=== PATIENT | female | born 1930 | race Caucasian/White ===

== ENCOUNTER 2017-01-03 10:01 | Inpatient (IN) | payer MEDICARE, OTHER ==
[2017-01-03] VITALS: BP 105/42
[~2017-01-03] VITALS: Ht 157.5 cm; Wt 43.1 kg
[~2017-01-03 10:01] MED LIST: DILT30TA14 PO; PANT40TA2 PO; SUCR1ORA6 GT
--- NOTE | 2017-01-03 10:25 | NUR ---
iv accessed to [facility] 20. blood sample sent to lab
[2017-01-03] MEDS ORDERED: OLANZAPINE 5 MG TABLET ONE (10:26)
[2017-01-03] MEDS ORDERED: IV NS 0.9% 500 ML IV ONE (10:26)
[2017-01-03] MEDS ORDERED: IV SET PRIMARY PUMP SET 1 EA INFUS.SET MC ONE (10:26)
[2017-01-03 10:28] LABS: BASOPHILS % (AUTO) 0.4 % (0.0-2.0); EOSINOPHILS % (AUTO) 0.5 % (0.0-6.0); HEMATOCRIT 34 % (33-45); HEMOGLOBIN 11.7 g/dL (11.5-14.8); LYMPHOCYTES # (AUTO) 1.4 /CMM (0.8-4.8); LYMPHOCYTES % (AUTO) 27.4 % (20.0-44.0); MEAN CORPUSCULAR HEMOGLOBIN 29 PG (26.0-33.0); MEAN CORPUSCULAR HGB CONC 34 g/dl (31.0-36.0); MEAN CORPUSCULAR VOLUME 86 fL (82-100); MONOCYTES # (AUTO) 0.7 /CMM (0.1-1.30); MONOCYTES % (AUTO) 13.2 % (2.0-12.0); NEUTROPHILS # (AUTO) 3.1 /CMM (1.8-8.9); NEUTROPHILS % (AUTO) 58.5 % (43.0-81.0); PLATELET COUNT (AUTO) 219 /CMM (150-450); RDW COEFFICIENT OF VARIATION 13.4 (11.5-15.0); RED BLOOD CELL COUNT(AUTO) 4.02 MIL/uL (4.0-5.2); WHITE BLOOD COUNT (AUTO) 5.2 K/uL (4.3-11.0)
[2017-01-03] MEDS ORDERED: IV NS 0.9% 500 ML BAG IV ONE (10:30)
[2017-01-03] MEDS ORDERED: OLANZAPINE 5 MG TABLET PO ONE (10:30)
[2017-01-03] MEDS ORDERED: DILT60TA19 PO (10:32)
[2017-01-03] MEDS ORDERED: SUCR1ORA6 PO (10:32)
[2017-01-03] MEDS ORDERED: PANT40TA4 PO (10:32)
--- NOTE | 2017-01-03 10:34 | NUR ---
radilogy tech at bs for cxr
--- NOTE | 2017-01-03 10:36 | NUR ---
bib family due to chest pain x 1 hour,. Patient is awake, however confused. Appears in no acute distress, respiration even and unlabored. No sob, patient sating well on room air. Skin is warm to touch and non diaphoretic. Afebrile. Gowned pt and placed on tele monitor. vss
--- NOTE | 2017-01-03 10:46 | NUR ---
URINE SAMPLE SENT TO LAB
--- NOTE | 2017-01-03 10:48 | NUR ---
[phone]- Divya Rosario [phone]- Ashwini Dtr in law- call first
[2017-01-03 10:51] LABS: CARBON DIOXIDE 27 mmol/L (21-32); CHLORIDE 104 mmol/L (98-107); CREATININE 0.9 mg/dL (0.6-1.3); GLUCOSE 103 mg/dL (74-106); POTASSIUM 4.3 mmol/L (3.5-5.1); SODIUM SERUM 138 mmol/L (136-145); UREA NITROGEN, BLOOD 20 mg/dL (7-18)
[2017-01-03 10:56] LABS: ALANINE AMINOTRANSFERASE 11 U/L (12-78); ALBUMIN 3.5 g/dL (3.4-5.0); ALKALINE PHOSPHATASE 122 U/L (46-116); ASPARTATE AMINOTRANSFERASE 13 U/L (15-37); BILIRUBIN,DIRECT 0.1 mg/dL (0.0-0.2); BILIRUBIN,TOTAL 0.3 mg/dL (0.2-1.0); TOTAL PROTEIN, SERUM 7.6 g/dL (6.4-8.2)
[2017-01-03 11:14] LABS: TROPONIN I < 0.017 ng/mL (0.00-0.056)
[2017-01-03 11:40] LABS: INR 1.05 (0.87-1.13); PROTHROMBIN TIME 10.9 SECS (9.5-12.7)
--- NOTE | 2017-01-03 11:49 | NUR ---
DR NICHOLSON ON THE PHONE WITH DR HILL FOR ADMISSION
[2017-01-03] MEDS ORDERED: MORPHINE SULFATE INJ 2 MG/ML DISP.SYRIN IV PRN ×2 (12:00→12:15)
[2017-01-03] MEDS ORDERED: SIMVASTATIN 20 MG TABLET PO SCH ×2 (12:00→22:00)
[2017-01-03] MEDS ORDERED: METOPROLOL TARTRATE 25 MG TABLET PO SCH (12:00)
[2017-01-03] MEDS ORDERED: ONDANSETRON HCL/PF 4 MG/2 ML VIAL IVP PRN ×2 (12:00→12:15)
[2017-01-03] MEDS ORDERED: ASPIRIN 81 MG TAB.CHEW PO SCH (12:00)
[2017-01-03] MEDS ORDERED: NITROGLYCERIN 0.4 MG/TAB BOTTLE SL PRN ×2 (12:00→12:15)
[2017-01-03] MEDS ORDERED: SUCRALFATE 1 G/10 ML UDC PO SCH (12:00)
[2017-01-03] MEDS ORDERED: PANTOPRAZOLE 40 MG TABLET.DR PO SCH (12:00)
--- NOTE | 2017-01-03 12:04 | NUR ---
TELE1/RN REPORT - ER RECEIVED A REPORT FROM ER NURSE ROMÁN FOR PT TO BE ADMITTED FOR CHEST PAIN, UNDER THE CARE OF DR. HILL. AWAITING FOR PT'S ARRIVAL.
--- NOTE | 2017-01-03 12:04 | NUR ---
Report given to nurse Pillar for joao
--- NOTE | 2017-01-03 12:12 | NUR ---
Transported patient to tele 1. [facility]
[2017-01-03 12:30] VITALS: BP 136/66
--- NOTE | 2017-01-03 12:30 | NUR ---
TELE1/MANAGER LABOR DELIVERY TO - TELE1 UNIT PT ARRIVED VIA GURNEY FROM ER ACCOMPANIED BY NURSE ROMÁN. PT ADMITTED FOR CHEST PAIN UDER THE CARE OF DR. HILL. PT AWAKE, A/O X [address] DICK. ON ROOM AIR SATURATING @ 99%, LUNG SOUNDS CLEAR. ON TELE WITH CONTROLLED A-FIB, HR 92. IV FLUSHED PATENT WITH NO S/S OF INFECTION, SL. SKIN INTACT. AWAITING FOR ADMITTING ORDERS. PT BEING SEEN BY DR. DICK. NO GRIMACE NOTED. PT IS COMFORTABLE AT THIS TIME. CL WITHIN REACHED AND SAFETY MAINTAINED. ON GOING MONITORING.
[2017-01-03] MEDS ORDERED: Z GUARD REMEDY 4 OZ OINT TP PRN (15:30)
[2017-01-03 16:00] VITALS: BP 121/57
--- NOTE | 2017-01-03 17:00 | NUR ---
TELE1/RN AFTERNOON ROUNDS NO ACUTE CHANGE OF CONDITION NOTED. PT IS COMFORTABLE, REPOSITIONED. MONITORING CONTINUED.
[2017-01-03] MEDS: SUCRALFATE 1 G/10 ML UDC PO SCH ×2 (17:12→22:17)
[2017-01-03] MEDS: METOPROLOL TARTRATE 25 MG TABLET PO SCH (17:13)
[2017-01-03] MEDS: DILTIAZEM HCL 30 MG TABLET PO SCH ×2 (17:13→23:34)
--- NOTE | 2017-01-03 19:16 | NUR ---
TELE1/RN END NOTES NO ACUTE CHANGE OF CONDITION NOTED SINCE PT WAS ADMITTED THIS AFTERNOON. NEEDS MET. PT ENDORSED TO PM NURSE TO CONTINUE CARE. CL WITHIN REACHED AND SAFETY MAINTAINED.
--- NOTE | 2017-01-03 19:47 | NUR ---
RN INITIAL NOTES: RECIEVED PT FROM AM SHIFT. PT AWAKE, A/O X [address] DICK. ON ROOM AIR SATURATING @ 99%, LUNG SOUNDS CLEAR. ON TELE WITH CONTROLLED A-FIB, HR 92. IV FLUSHED PATENT WITH NO S/S OF INFECTION, SL. SKIN INTACT. AWAITING FOR ADMITTING ORDERS. PT BEING SEEN BY DR. DICK. NO GRIMACE NOTED. PT IS COMFORTABLE AT THIS TIME. CL WITHIN REACHED AND SAFETY MAINTAINED.
[2017-01-03 20:00] VITALS: BP 121/46
[2017-01-04 04:00] VITALS: BP 125/83
[2017-01-04] MEDS: DILTIAZEM HCL 30 MG TABLET PO SCH ×3 (05:56→18:40)
[2017-01-04 08:00] VITALS: BP 137/52
--- NOTE | 2017-01-04 08:00 | NUR ---
TELE1/RN AM SHIFT INITIAL NOTES RECEIVED PT AWAKE IN BED, PT NOTED TO BE MORE CONFUSED THAN YESTERDAY, TRYING TO GET OUT OF BED. NO GRIMACE. ON ROOM AIR SATURATING @ 97%, LUNG SOUNDS CLEAR. ON TELE WITH CONTROLLED A-FIB, HR 84. IV INTACT, FLUSHED, PATENT WITH NO S/S OF INFECTION, SL. SCHEDULED AM MEDS TO BE GIVEN. CL WITHIN REACHED AND SAFETY MAINTAINED. ON GOING MONITORING.
[2017-01-04] MEDS: SUCRALFATE 1 G/10 ML UDC PO SCH ×4 (08:28→21:32)
[2017-01-04] MEDS: PANTOPRAZOLE 40 MG TABLET.DR PO SCH (08:29)
[2017-01-04] MEDS: METOPROLOL TARTRATE 25 MG TABLET PO SCH ×2 (08:29→16:29)
[2017-01-04] MEDS ORDERED: ACETAMINOPHEN ES 500 MG TABLET PO PRN (08:30)
[2017-01-04] MEDS ORDERED: PANTOPRAZOLE 40 MG TABLET.DR PO SCH (08:30)
[2017-01-04] MEDS ORDERED: ASPIRIN 81 MG TAB.CHEW PO SCH (09:00)
--- NOTE | 2017-01-04 09:48 | NUR ---
MS1/RN ROUNDS - DR. HILL UPDATED PT'S CONDITION. PT SEEN & EXAMINED BY DR. HILL. WITH VERBAL ORDER RECEIVED TO START PT ON ATIVAN 0.5MG IVP Q6HRS FOR ANXIETY. ORDER NOTED AND CARRIED. MONITORING CONTINUED.
[2017-01-04] MEDS: LORAZEPAM INJ 2 MG/ML VIAL IV PRN (10:45)
[2017-01-04] MEDS ORDERED: PIPERACILLIN /TAZOBACTAM 3.375 G in IV D5W 50 ML IV SCH (12:00)
[2017-01-04 16:00] VITALS: BP 119/56
--- NOTE | 2017-01-04 16:00 | NUR ---
MS1/RN AFTERNOON ROUNDS NO CHANGE OF CONDITION. STILL CONFUSED. PM CARE PROVIDED. WRISTS RESTRAINTS IN PLACED, SAFETY MAINTAINED. MONITORING CONTINUED.
--- NOTE | 2017-01-04 19:16 | NUR ---
MS1/RN AM SHIFT END NOTES PT NOTED TO BE MORE CONFUSED TODAY THAN YESTERDAY, ALSO NOTED POOR APPETITE TODAY. NEEDS MET. IV SITE INTACT, PATENT, WITH NO S/S OF INFECTION, SL AND SECURED WITH KERLIX BANDAGE. WRISTS RESTRAINTS IN PLACED. PT ENDORSED TO PM NURSE TO CONTINUE CARE. CL WITHIN REACHED AND SAFETY MAINTAINED.
--- NOTE | 2017-01-04 19:27 | NUR ---
rn:ms: pt received in bed no distress. pt confused, in restraints. pt attempting to get out of bed. pt repositioned for comfort. fall precautions in place, and bed alarm in place. will continue to monitor closely.
[2017-01-04 20:00] VITALS: BP 121/47
[2017-01-05] MEDS: DILTIAZEM HCL 30 MG TABLET PO SCH ×4 (00:06→17:10)
[2017-01-05] MEDS: LORAZEPAM INJ 2 MG/ML VIAL IV PRN (00:14)
[2017-01-05 08:00] VITALS: BP_SYST 113; BP_SYST 128; BP_DIAS 61; BP_DIAS 77
--- NOTE | 2017-01-05 08:00 | NUR ---
MS1/RN AM SHIFT INITIAL NOTES RECEIVED PT ASLEEP IN BED, AROUSEABLE, MORE CALM THAN YESTERDAY, NO GRIMACE. ON ROOM AIR SATURATING @ 97%, LUNG SOUNDS CLEAR. IV INTACT, FLUSHED, PATENT WITH NO S/S OF INFECTION, SL. BILATERAL WRIST RESTRAINTS IN PLACED, REPLACED TO CHECK FOR CIRCULATION AND COMFORT THEN PLACED BACK. SCHEDULED AM MEDS TO BE GIVEN. CL WITHIN REACHED AND SAFETY MAINTAINED. ON GOING MONITORING.
[2017-01-05] MEDS: METOPROLOL TARTRATE 25 MG TABLET PO SCH ×2 (09:13→17:10)
[2017-01-05] MEDS: PANTOPRAZOLE 40 MG TABLET.DR PO SCH (09:13)
[2017-01-05] MEDS: SUCRALFATE 1 G/10 ML UDC PO SCH ×4 (09:13→22:10)
--- NOTE | 2017-01-05 12:00 | NUR ---
MS1/RN NOON ROUNDS PT REPOSITIONED, NO CHANGE OF CONDITION. MONITORING CONTINUED.
[2017-01-05 16:00] VITALS: BP 111/62
--- NOTE | 2017-01-05 16:00 | NUR ---
MS1/RN AFTERNOON ROUNDS PM CARE PROVIDED. NO ACUTE CHANGE OF CONDITION NOTED. ON GOING MONITORING.
[2017-01-05] MEDS ORDERED: BISACODYL SUPP (10 MG) 10 MG/SUPP.RECT SUPP.RECT RC PRN (17:00)
--- NOTE | 2017-01-05 19:07 | NUR ---
MS1/RN AM SHIFT END NOTES NO CHANGE OF CONDITION NOTED DURING THE SHIFT. NEEDS MET. PT ENDORSED TO PM NURSE TO CONTINUE CARE. BILATERAL WRIST RESTRAINTS IN PLACED AND IV SITE PATENT WITH NO S/S OF INFECTION, SL. CL WITHIN REACHED AND SAFETY MAINTAINED.
--- NOTE | 2017-01-05 19:30 | NUR ---
MS RN OPENING NOTES; PATIENT IN BED, ASLEEP AT THIS TIME, BUT EASILY AWAKENS TO TOUCH. ON ROOM AIR, BREATHING EVEN AND UNLABORED. BREATH SOUNDS CLEAR TO AUSCULTATION. PATIENT HAS BILATERAL SOFT WRIST RESTRAINTS ON. SKIN OVER FOREARMS INTACT, WITH NO SIGN OF SKIN BREAKDOWN. PIV OVER L HAND G 24 INTACT AND PATENT TO FLUSH, COVERED WITH KERLIX. REPOSITIONED PATIENT. PROVIDED FOR COMFORT AND SAFETY. WILL CONT TO MONITOR.
[2017-01-05 20:00] VITALS: BP 113/47
--- NOTE | 2017-01-05 22:00 | NUR ---
RN NOTES: PATIENT WAS ABLE TO TAKE CARAFATE PO. HOB MAINTAINED ELEVATED. WILL CONT TO MONITOR.
--- NOTE | 2017-01-06 00:30 | NUR ---
RN NOTES: PATIENT'S BP CHECKED AT 96/44, HR: 80. HELD DILTIAZEM PO AT THIS TIME.
[2017-01-06 04:00] VITALS: BP 127/49
[2017-01-06] MEDS: DILTIAZEM HCL 30 MG TABLET PO SCH ×3 (05:36→11:30)
--- NOTE | 2017-01-06 06:47 | NUR ---
MS RN CLOSING NOTES: PATIENT IN BED, ASLEEP BUT EASILY AWAKENS TO NAME BEING CALLED. ON ROOM AIR, BREATHING EVEN AND UNLABORED. APPEARS CALM AND IN NO DISTRESS. DUE MEDS GIVEN. PROVIDED FOR COMFORT AND SAFETY. BILATERAL SOFT WRIST RESTRAINTS APPLIED, WITH FREQUENT CHECKING FOR GOOD CIRCULATION AND SKIN INTEGRITY OVER BUE. TURNED AND REPOSITIONED. NO ACUTE CHANGE IN CONDITION NOTED THROUGH SHIFT. WILL ENDORSE TO AM RN FOR MARTHA.
--- NOTE | 2017-01-06 07:20 | NUR ---
RN INITIAL NOTES RECEIVED PT IN BED, AWAKE, A/O X1, CONFUSED, PT IS ON RA, SATING WELL, NO S.S OF RESP. DISTRESS OR SOB NOTED AT THIS TIME, PT HAS L HAND #24G,SL, C/D/I/PATENT, FLUSHING WELL, NO S/S OF INFECTION/ INFILTRATION NOTED AT THIS TIME, ALL SAFETY MEASURES IN PLACE AT ALL TIMES,CALL LIGHT WITHIN EASY REACH, WILL MONITOR PT CLOSELY FOR CHANGES
[2017-01-06] MEDS: SUCRALFATE 1 G/10 ML UDC PO SCH ×2 (07:30→11:29)
[2017-01-06] MEDS: PANTOPRAZOLE 40 MG TABLET.DR PO SCH (07:30)
[2017-01-06 08:00] VITALS: BP 142/70
--- NOTE | 2017-01-06 08:30 | NUR ---
RN NOTES PT REFUSED TO TAKE AM MEDICATIONS, X3, OFFERED WITH APPLESAUCE AND PUDDING, PT SPIT OUT
[2017-01-06] MEDS: METOPROLOL TARTRATE 25 MG TABLET PO SCH (09:00)
--- NOTE | 2017-01-06 10:44 | NUR ---
RN NOTES REPORT WAS [phone], WILL REMOVED IV ACCESS UPON D/C, ALL INSTRUCTIONS WERE GIVEN TO DAUGHTER IN LAW AT BEDSIDE, D/C PAPERWORK SIGNED AND IN CHART, PHOTO WAS TAKEN AND IN CHART, PT WAS KEPT CLEAN AND DRY, BELONGINGS LIST WAS SIGNED, PT HAS ALL BELONGINGS, ALL MD ORDERS CARRIED OUT, PT REMAINED STABLE DURING SHIFT, REPORT WILL BE GIVEN TO EMT UPON D/C
[2017-01-06 11:30] VITALS: BP 142/70
--- NOTE | 2017-01-06 11:30 | NUR ---
RN NOTES PT REFUSED PM MEDICATIONS, X2, PT SPIT OUT MEDICATIONS
--- NOTE | 2017-01-06 13:00 | NUR ---
RN NOTES PT IV REMOVED AND ID BANDS, REPORT GIVEN TO EMT.
== END 2017-01-06 13:13 | DRG 310 ==
LOC: ER 10:08 → TELE1 12:20 → MEDSG1 01-04 09:45
PROVIDERS: ADMIT Internal Medicine; ATTEND Internal Medicine
DX: I48.1 Persistent atrial fibrillation (principal); R07.9 Chest pain, unspecified; I49.3 Ventricular premature depolarization; I10 Essential (primary) hypertension; F03.90 Unspecified dementia, unspecified severity, without behavioral disturbance, psychotic disturbance, mood disturbance, and anxiety; K21.9 Gastro-esophageal reflux disease without esophagitis; I25.10 Atherosclerotic heart disease of native coronary artery without angina pectoris; I35.0 Nonrheumatic aortic (valve) stenosis; Z87.11 Personal history of peptic ulcer disease; R55 Syncope and collapse
CPT/HCPCS: 36415; 71010-TC; 80048-TC; 80076-TC; 84484-TC; 85025-TC; 85730-TC; 86850-TC; 87081-TC; 93307-TC; 97001-TC; A4606; J2060; J2543; J7040; J7060; Z7610